=== PATIENT | female | born 1990 | race Caucasian/White ===

== ENCOUNTER 2017-12-16 21:18 | Emergency (ER) | payer OTHER ==
[~2017-12-16] VITALS: Ht 152.4 cm; Wt 56.0 kg
[~2017-12-16 21:18] MED LIST: ACCUNEB1.25 MG/3 IH; ADVAIR; ADVAIR 250/501 DISK; CLARITIN10 MG; KEFLEX500 MG PO; PERCOCET 5/31 TABLET PO; PREDNISONE20 MG PO; PRENATAL1 EACH PO; PROAIR HFA8.5 GM; PROAIR HFA8.5 GM IH; PROVENTIL17 GM IH; PYRIDIUM200 MG PO; TESSALON200 MG PO
[2017-12-16 23:53] VITALS: BP 135/97
== END 2017-12-16 23:58 ==
LOC: EME 21:18
DX: T40.601A Poisoning by unspecified narcotics, accidental (unintentional), initial encounter (principal); F17.200 Nicotine dependence, unspecified, uncomplicated
CPT/HCPCS: 99281; 99285